=== PATIENT | male | born 1975 | race African-American/Black ===

== ENCOUNTER 2020-01-10 22:18 | Emergency (ER) | payer BC ==
[~2020-01-10] VITALS: Ht 193 cm; Wt 104.5 kg
[2020-01-10 22:24] VITALS: BP 131/90
== END 2020-01-10 22:48 | disposition left against medical advice (07) ==
LOC: EMS 22:20
DX: M79.605 Pain in left leg (principal); Z53.21 Procedure and treatment not carried out due to patient leaving prior to being seen by health care provider